=== PATIENT | female | born 1990 | race Two or more races ===

== ENCOUNTER 2020-11-12 18:51 | Emergency (ER) | payer OTHER ==
[~2020-11-12] VITALS: Ht 165.1 cm; Wt 73.0 kg
--- NOTE | 2020-11-12 19:00 | NUR ---
PT CALLED TO TRIAGE, PT NOT IN WAITING ROOM
--- NOTE | 2020-11-12 19:55 | NUR ---
BIB S/O C/O [place]AN[place] "I FEEL LIKE SOMEONE IS WATCHING ME AND SOMEONE IS OUT TO HURT ME." DENIES SI/HI. PT REQUESTING MED CLEARANCE FOR SCHVN.
[2020-11-12 20:14] LABS: BASOPHILS # (AUTO) 0.1 /CMM (0.0-0.2); BASOPHILS % (AUTO) 0.6 % (0.0-2.0); EOSINOPHILS % (AUTO) 0.9 % (0.0-6.0); HEMATOCRIT 41 % (33-45); HEMOGLOBIN 13.3 g/dL (11.5-14.8); LYMPHOCYTES # (AUTO) 3.3 /CMM (0.8-4.8); LYMPHOCYTES % (AUTO) 30.4 % (20.0-44.0); MEAN CORPUSCULAR HGB CONC 32 g/dl (31.0-36.0); MEAN CORPUSCULAR VOLUME 78 fL (82-100); MONOCYTES # (AUTO) 0.6 /CMM (0.1-1.30); MONOCYTES % (AUTO) 5.7 % (2.0-12.0); NEUTROPHILS # (AUTO) 6.7 /CMM (1.8-8.9); NEUTROPHILS % (AUTO) 62.4 % (43.0-81.0); PLATELET COUNT (AUTO) 281 /CMM (150-450); RED BLOOD CELL COUNT(AUTO) 5.34 MIL/uL (4.0-5.2); WHITE BLOOD COUNT (AUTO) 10.8 K/uL (4.3-11.0)
[2020-11-12 20:24] LABS: BILIRUBIN,URINE Negative (NEGATIVE); LEUKOCYTE ESTERASE ,URINE Trace (NEGATIVE); NITRITE, URINE Negative (NEGATIVE); PH,URINE 5.5 (5.0-8.0); PROTEIN,URINE >=300 mg/dl (NEGATIVE); UGLUCOSE Negative (NEGATIVE); UROBILINOGEN,URINE 0.2 EU/dL (0.2)
[2020-11-12 20:25] LABS: COLOR,URINE RED (YELLOW)
[2020-11-12 20:25] LABS: ALANINE AMINOTRANSFERASE 41 U/L (12-78); ALKALINE PHOSPHATASE 90 U/L (46-116); ASPARTATE AMINOTRANSFERASE 27 U/L (15-37); BILIRUBIN,DIRECT 0.1 mg/dL (0.0-0.2); BILIRUBIN,TOTAL 0.2 mg/dL (0.2-1.0); CALCIUM, SERUM 9.1 mg/dL (8.5-10.1); CARBON DIOXIDE 24 mmol/L (21-32); CHLORIDE 104 mmol/L (98-107); CREATININE 0.8 mg/dL (0.6-1.3); GLUCOSE 109 mg/dL (74-106); SODIUM SERUM 140 mmol/L (136-145); TOTAL PROTEIN, SERUM 7.5 g/dL (6.4-8.2); UREA NITROGEN, BLOOD 23 mg/dL (7-18)
[2020-11-12 20:26] LABS: ACETAMINOPHEN < 2 ug/ml (10-30); ALCOHOL, BLOOD < 3 mg/dL (0-0)
[2020-11-12 20:40] LABS: BACTERIA,URINE None seen /HPF (None Seen); RBC,URINE TOO NUMEROUS TO COUN /HPF (0-2); SQUAMOUS EPITHELIAL CELL,UR None Seen /HPF (None Seen); WBC,URINE NONE SEEN /HPF (0-3)
[2020-11-12] MEDS ORDERED: LORAZEPAM 1 MG TABLET ONE (21:02)
[2020-11-12] MEDS: LORAZEPAM 1 MG TABLET PO ONE (21:05)
--- NOTE | 2020-11-12 21:06 | NUR ---
COVID SWAB COLLECTED AND SENT
--- NOTE | 2020-11-12 22:11 | NUR ---
CLINICAL AND FACESHEET FAXED TO [facility] INTAKE FOR VOLUNTARY PSYCH ADMISSION.
--- NOTE | 2020-11-13 01:02 | NUR ---
TRANSFER INFORMATION PT ACCEPTED AT [facility] ACCEPTING MD MELTON PHONE # FOR REPORT EXT [phone]
--- NOTE | 2020-11-13 01:11 | NUR ---
[id number] CALLED TRIP# [id number]
--- NOTE | 2020-11-13 03:09 | NUR ---
called in report to shirley méndez
--- NOTE | 2020-11-13 03:13 | NUR ---
Zeferino tay in [facility] - 11/13/20 at 0314 by CORINNA ETA [id number]
--- NOTE | 2020-11-13 03:14 | NUR ---
eta [phone]
--- NOTE | 2020-11-13 05:31 | NUR ---
NEW ETA [id number] PER [facility]
--- NOTE | 2020-11-13 05:53 | NUR ---
ambulance here for bulk picker
[2020-11-13 06:00] VITALS: BP 124/65
--- NOTE | 2020-11-13 06:15 | NUR ---
REPORT GIVEN TO [facility]
== END 2020-11-13 06:22 ==
LOC: ER 18:51
DX: F29 Unspecified psychosis not due to a substance or known physiological condition (principal); R45.851 Suicidal ideations; F41.9 Anxiety disorder, unspecified; Z20.822 Contact with and (suspected) exposure to COVID-19; F43.10 Post-traumatic stress disorder, unspecified; Z86.59 Personal history of other mental and behavioral disorders
CPT/HCPCS: 36415; 80048; 80076; 80143; 80307; 80320; 81001; 84703; 85025; 87426; 99285; C9803; G0480